=== PATIENT | female | born 1970 ===

== ENCOUNTER 2016-04-22 12:41 | Emergency (ER) | payer MEDICAID, OTHER ==
[~2016-04-22] VITALS: Ht 157.5 cm; Wt 63.6 kg
[2016-04-22 12:45] VITALS: BP 147/76; PULSE 87; RESP 22; O2SAT 99
--- NOTE | 2016-04-22 13:54 | DRSVH ---
PROCEDURE: X-RAY RIGHT RIBS, TWO VIEWS ([id number]) INDICATIONS: fell 2days ago severe Right hip/pelvis pain. TECHNIQUE: 3 views of the right ribs were acquired. COMPARISON: [facility], CR, XR RIBS RIGHT AND PA CHEST 3+V, 12/01/2015, 6:53 PM. [facility], CR, RIBS UNILAT 2VW (RT), 07/26/2011, 21:01. FINDINGS: Surgical changes and devices: Cholecystectomy clips. Bones and chest wall: Old fourth through sixth rib fractures are noted.. Questionable nondisplaced ri ght lateral fifth rib fracture. No suspicious bony lesions. Overlying soft tissues appear unremarkab le. Lungs and pleura: The visualized lung appears clear. No pleural effusions or pneumothorax are visib le. IMPRESSION: Suspected nondisplaced right lateral rib fracture. Dictated by: Chloe Hoyos M.D. on 04/22/2016 at 13:53 Approved by: Chloe Hoyos M.D. on 04/22/2016 at 13:53
--- NOTE | 2016-04-22 14:34 | DRSVH ---
PROCEDURE: X-RAY PELVIS W/LAT HIP (RT) ([id number]) INDICATIONS: fell 2days ago severe Right hip/pelvis pain. TECHNIQUE: AP pelvis with lateral view(s) of the right hip. COMPARISON: None. FINDINGS: Bones: No fractures or dislocations. Pelvic ring appears intact. No suspicious bony lesions. Soft tissues: The visualized bowel gas pattern is normal. No suspicious soft tissue calcifications. IMPRESSION: No acute disease. No trauma found. Dictated by: Braxton Mauro M.D. on 04/22/2016 at 14:33 Approved by: Braxton Mauro M.D. on 04/22/2016 at 14:33
--- NOTE | 2016-04-22 14:41 | ED.REPORT ---
HPI-Trauma Minor / Fall Date of Service Apr 22, 2016 ED Provider: Doc,Ed MD The patient is a 46 year old female who presents to the emergency department complaining of right-sided rib pain and right hip pain that began after a ground level fall that occurred 2 days ago. She did not come to the hospital because her significant other's was yesterday. Today her pain is worse. She is able to walk but needs significant assistance. She previously injured her right ribs 8 months ago. Nursing Notes Stated Complaint: GLF Chief Complaint: General Complaint Nursing Notes Reviewed: Yes Allergies: Coded Allergies: hydrocodone (Verified Allergy, Severe, ITCHY, 02/18/16) Scheduled PRN Ibuprofen (Ibuprofen) 600 Mg Tablet 600 MG PO QID PRN PRN For Pain Lorazepam (Ativan) 0.5 Mg Tablet 0.5 MG PO TID PRN PRN For Anxiety oxyCODONE-Acetaminophen 5-325 mg (oxyCODONE-Acetaminophen 5-325 mg) 1 Each Tablet 1-2 TAB PO Q6H PRN PRN For Pain General Time Seen by MD: 14:39 Chief Complaint Fall Hx Obtained From: Patient Arrived By: Walk-in Onset Occurred: 2 days ago Symptom Duration: Since onset Caused by: Fall on ground Location: Chest Hip right Quality: Painful Severity: Current: Moderate Severity: Maximum: Moderate Recent Healthcare: No recent hospitalization Similar Sx Previous: Yes Past Medical History Past Medical History Notes: PCP: Dr. Brandt at [facility] [address] Past Medical History osteoarthritis fibromyalgia depression Past Surgical History none reported Smoking History Current Every Day Smoker Social History Her significant other recently . Alcohol Use: "Social" Drug Use: Denies drug use Other Social History: Good social support, Local resident Ambulatory Status Independent Review of Systems Musculoskeletal: Reports: Joint pain Complete sys rev & neg: except as marked. Cardiovascular: Reports: Chest pain (rib pain) Psychiatric: Reports: Stress Physical Exam Initial Vital Signs Vital Signs (First) Date Time Temp Pulse Resp B/P Pulse Ox O2 Delivery O2 Flow Rate FiO2 04/22/16 12:45 36.2 87 22 147/76 99 Room Air Initial VS: Reviewed Head / Eyes: Atraumatic, Normocephalic, PERRL ENT: Mucous membranes moist, Conjunctiva normal, No scleral icterus Cardiovascular: Regular rate & rhythm, Heart sounds normal, Intact distal pulses Abdomen / GI: Soft, Non-tender, No guarding, No rebound, No distention Lymphatic: No lymphadenopathy Extremities: Vascular intact, Neuro intact, No swelling Skin: Warm, Dry, No cyanosis Neurologic: Alert, Oriented, Nonfocal Psychiatric: Mood/affect normal, Behavior normal, Normal thought content General/Constitutional: Awake, Alert Neck: Atraumatic, Supple, Full range of motion, No swelling, Non-tender, No midline vertebral tend Respiratory / Chest: Breath sounds NL, Breath sounds = bilat, No respiratory distress, No rales, No rhonchi, No wheezing Tenderness in the right axilla. She also describes central chest tenderness. Lower Extremity / Pelvis / MS: Neurologic intact, Vascular intact Bruise on right lateral thigh. Significant tenderness over the right ischial tuberosity and right groin. Significant pain with any weight bearing. Interpretation & Diagnostics RIGHT HIP CT IMPRESSION: Traumatic injury to the right hemipelvis is not seen and specifically a right hip fracture is not found. Please note that MR scanning provides the most accurate detection for nondisplaced fractures, and if clinical concerns persist followup by dedicated screening pelvic MRI may be warranted. I have personally diagnosed hip fractures from MR scans where the CT scan has been interpreted as normal. Dictated by: Braxton Mauro M.D. on 04/22/2016 at 16:57 Lab Results Interpretation Test 04/22/16 16:10 Hold Urine Received (Received) X-Ray Interpretation Xray Interpretation: MPRESSION: Suspected nondisplaced right lateral rib fracture. Dictated by: Chloe Hoyos M.D. on 04/22/2016 at 13:53 Study Performed: Right ribs Interpretation / Wet Read by: Interpret - Radiologist Xray Interpretation: IMPRESSION: No acute disease. No trauma found. Dictated by: Braxton Mauro M.D. on 04/22/2016 at 14:33 X-Ray Ordered: Pelvis Interpretation / Wet Read by: Interpret - Radiologist Re-Eval/Medical Decision Source of Hx: Old records, Family Re-Evaluation/Progress #1: Time of Eval: 15:53 Re-Evaluation/Progress Note: Rechecked the patient. Her symptoms slightly improved with medication. Discussed plan for CT scan. Re-Evaluation/Progress #2: Time of Eval: 17:41 Re-Evaluation/Progress Note: Rechecked the patient. Discussed x-ray results, diagnosis, and plan for discharge. All questions were addressed. Counseled Regarding: Diagnosis, Need for follow-up, When/why to return to ED Discharge & Departure Impression: Primary Impression: Rib fracture Encounter type: initial encounter Rib fracture type: single rib Fracture type: closed Laterality: right Qualified Code: S22.31XA - Fracture of one rib, right side, initial encounter for closed fracture Additional Impressions: Grief reaction Contusion of hip, right Encounter type: initial encounter Qualified Code: S70.01XA - Contusion of right hip, initial encounter Disposition: Home Discharge Condition All VS Reviewed: Yes Condition: Stable Patient Instructions: Rib Fracture (ED) Additional Instructions: Thank you for entrusting us with your care today. Your chest x-ray shows evidence of a right-sided rib fracture. Your hip x-ray and CT look good, there is no sign of any fractures. Bear weight as tolerable. Use Ibuprofen for moderate pain and Percocet for severe pain (you can use these together). You typically have the most pain after a fall, so today should be as bad as it gets (but tomorrow might be similar, just not worse). The ribs will take up to 6 weeks to heal. Typically after the first 5-7 days, Ibuprofen is going to provide adequate help with pain. Make sure you are taking deep breaths to avoid developing pneumonia. It sounds like you are having a difficult time after your partner's yesterday. Sometimes, a brief bit of anxiety medications to help you deal with the intense feelings for a few days. It is only a bandaid to give you time to process and heal. Mixing more than 1 Ativan and 1 Percocet every 6 hours can cause severe respiratory depression and you may stop breathing and can . Do not take too much of these. Followup with your regular doctor next week for re-evaluation. Please return to the emergency department for any new or concerning symptoms. I hope your broken ribs and broken heart heal completely. Referrals: KRISTOPHER RODARTE (PCP) [place] [facility] Portions of this note were transcribed by Regi Sapp. I, Dr. Strange personally performed the history, physical exam and medical decision-making; I reviewed and confirmed the accuracy of the information in the transcribed note. Signed by:Antonio Bhagat, 04/22/2016 and [id number]. copies to: [facility] Lana Strange MD Apr 22, 2016 14:41 Sekou,Regi Mcnally Apr 22, 2016 15:16
[2016-04-22] MEDS ORDERED: LORazepam 1 mg Tablet PO ONE (14:45)
[2016-04-22] MEDS ORDERED: Ketorolac 30 mg/mL 2 mL Inj IM ONE (14:45)
[2016-04-22] MEDS ORDERED: oxyCODONE-Acetamin 5-325 mg Tablet PO ONE (15:50)
[2016-04-22 16:47] VITALS: BP 107/62; PULSE 61; RESP 16; O2SAT 99
--- NOTE | 2016-04-22 16:58 | DRSVH ---
PROCEDURE: CT HIP RIGHT W/O CONTRAST ([id number]) INDICATIONS: fall, ? occult pelvic/hip fracture TECHNIQUE: Noncontrast 3 mm axial sections acquired through the bony pelvis. Additional 3 mm axial sections acq uired through the symptomatic hip joint, with coronal and sagittal reformats. COMPARISON: None. FINDINGS: Image quality: Excellent. Bones: No fracture found Soft tissues: No hematoma identified IMPRESSION: Traumatic injury to the right hemipelvis is not seen and specifically a right hip fractur e is not found. Please note that MR scanning provides the most accurate detection for nondisplaced f ractures, and if clinical concerns persist followup by dedicated screening pelvic MRI may be warrante d. I have personally diagnosed hip fractures from MR scans where the CT scan has been interpreted as normal. Dictated by: Braxton Mauro M.D. on 04/22/2016 at 16:57 Approved by: Braxton Mauro M.D. on 04/22/2016 at 16:57
[2016-04-22] MEDS ORDERED: OXYC1TAB24 PO (17:40)
[2016-04-22] MEDS ORDERED: LORA-302 PO (17:40)
[2016-04-22] MEDS ORDERED: IBUP-1827 PO (17:40)
[2016-04-22 18:05] VITALS: BP 118/61; PULSE 61; RESP 18; O2SAT 97
== END 2016-04-22 18:06 | disposition home or self-care (01) ==
LOC: SED 12:41
DX: S22.31XA Fracture of one rib, right side, initial encounter for closed fracture (principal); S70.01XA Contusion of right hip, initial encounter; W01.198A Fall on same level from slipping, tripping and stumbling with subsequent striking against other object, initial encounter; Y93.89 Activity, other specified; Y92.89 Other specified places as the place of occurrence of the external cause; Y99.8 Other external cause status; F43.20 Adjustment disorder, unspecified; F17.200 Nicotine dependence, unspecified, uncomplicated; Z88.5 Allergy status to narcotic agent
CPT/HCPCS: 71100; 73501; 73700; 96372; 99285; J1885